=== PATIENT | female | born 1995 | race Caucasian/White ===

== ENCOUNTER 2017-09-28 17:08 | Emergency (ER) | payer BC ==
[2017-09-28 17:51] LABS: BASOPHILS 0.4 % (0-2); EOSINOPHILS 1.1 % (0-7); HEMATOCRIT 34.5 % (36.0-48.0); HEMOGLOBIN 11.4 g/dL (12-16); IMMATURE GRANULOCYTES 0.2 % (0-5); LYMPHOCYTES 22.8 % (15-50); MCH 25.9 pg (26.0-34.0); MCV 78.2 fL (80.0-100.0); MEAN PLATELET VOLUME 9.5 fL (7.4-10.4); MONOCYTES 6.3 % (2-11); NEUTROPHILS 69.2 % (40-80); PLATELET COUNT 285 10x3/uL (130-400); RBC 4.41 10x6/uL (4.00-5.40); RDW 17.3 % (11.5-14.5); WBC 5.2 10x3/uL (4.8-10.8)
[2017-09-28 18:08] LABS: ALBUMIN 3.8 g/dL (3.4-5.0); ALKALINE PHOSPHATASE 44 U/L (46-116); ALT (SGPT) 32 U/L (10-68); BILIRUBIN - TOTAL 0.81 mg/dL (0.2-1.3); CALC OSMOLALITY 270 mosm/kg (275-300); CALCIUM 9.3 mg/dL (8.5-10.1); CHLORIDE - SERUM 102 mmol/L (98-107); CREATININE - SERUM 0.5 mg/dL (0.6-1.3); GLUCOSE 114 mg/dL (74-106); POTASSIUM - SERUM 3.7 mmol/L (3.5-5.1); PROTEIN - SERUM 7.6 g/dL (6.4-8.2); SODIUM 136 mmol/L (136-145); UREA NITROGEN 7 mg/dL (7-18); eGFR NON AFRICAN AMERICAN > 90 mL/min (90-120)
[2017-09-28 18:28] LABS: APPEARANCE SLT CLOUDY (CLEAR); COLOR AMBER (YELLOW); GLUCOSE NEGATIVE (NEGATIVE); KETONE LARGE mg/dL (NEGATIVE); NITRITE NEGATIVE (NEGATIVE); PROTEIN NEGATIVE (NEGATIVE)
[2017-09-28 18:29] LABS: BILIRUBIN 1+ (NEGATIVE)
[2017-09-28 18:32] LABS: BACTERIA MODERATE /hpf (NONE SEEN); EPITHELIAL CELLS 0-5 /hpf (0-5); MUCUS <1+ /lpf (NONE SEEN); RED CELLS - URINE 0-5 /hpf (0-5)
[2017-09-28 18:33] LABS: HCG - QUANTITATIVE (MATERNAL) 215001 mIU/mL
== END 2017-09-28 22:45 | disposition home or self-care (01) ==
LOC: D.ER 17:08
PROVIDERS: Emergency Medicine
DX: O26.891 Other specified pregnancy related conditions, first trimester (principal); Z3A.08 8 weeks gestation of pregnancy; R10.2 Pelvic and perineal pain; D64.9 Anemia, unspecified

== ENCOUNTER 2017-10-07 20:30 | Emergency (ER) | payer BC ==
[2017-10-07 20:57] LABS: BASOPHILS 0.3 % (0-2); EOSINOPHILS 0.3 % (0-7); HEMOGLOBIN 13.4 g/dL (12-16); IMMATURE GRANULOCYTES 0.3 % (0-5); LYMPHOCYTES 14.3 % (15-50); MCH 26.3 pg (26.0-34.0); MCHC 33.5 g/dL (31.0-37.0); MCV 78.6 fL (80.0-100.0); MEAN PLATELET VOLUME 9.7 fL (7.4-10.4); MONOCYTES 6.7 % (2-11); NEUTROPHILS 78.1 % (40-80); PLATELET COUNT 321 10x3/uL (130-400); RBC 5.09 10x6/uL (4.00-5.40); RDW 17.5 % (11.5-14.5); WBC 7.7 10x3/uL (4.8-10.8)
[2017-10-07 21:22] LABS: ALBUMIN 4.5 g/dL (3.4-5.0); ALKALINE PHOSPHATASE 59 U/L (46-116); ALT (SGPT) 65 U/L (10-68); CALC OSMOLALITY 267 mosm/kg (275-300); CALCIUM 10.3 mg/dL (8.5-10.1); CARBON DIOXIDE 16.8 mmol/L (21.0-32.0); CHLORIDE - SERUM 101 mmol/L (98-107); CREATININE - SERUM 0.6 mg/dL (0.6-1.3); GLUCOSE 80 mg/dL (74-106); POTASSIUM - SERUM 4.4 mmol/L (3.5-5.1); PROTEIN - SERUM 8.8 g/dL (6.4-8.2); SODIUM 135 mmol/L (136-145); UREA NITROGEN 11 mg/dL (7-18); eGFR NON AFRICAN AMERICAN > 90 mL/min (90-120)
[2017-10-07 21:43] LABS: HCG - QUANTITATIVE (MATERNAL) 240217 mIU/mL
[2017-10-07 23:34] LABS: APPEARANCE CLEAR (CLEAR); BILIRUBIN NEGATIVE (NEGATIVE); COLOR DK YELLOW (YELLOW); GLUCOSE NEGATIVE (NEGATIVE); KETONE LARGE mg/dL (NEGATIVE); NITRITE NEGATIVE (NEGATIVE); PROTEIN NEGATIVE (NEGATIVE); SPECIFIC GRAVITY 1.025 (1.005-1.020); UROBILINOGEN NORMAL (NORMAL)
== END 2017-10-07 23:55 | disposition home or self-care (01) ==
LOC: D.ER 20:30
PROVIDERS: Family Medicine
DX: O02.81 Inappropriate change in quantitative human chorionic gonadotropin (hCG) in early pregnancy (principal); R11.10 Vomiting, unspecified

== ENCOUNTER 2018-01-06 11:54 | Outpatient (CLI) | payer BC ==
[2018-01-06 12:46] LABS: APPEARANCE HAZY (CLEAR); BILIRUBIN NEGATIVE (NEGATIVE); COLOR YELLOW (YELLOW); GLUCOSE NEGATIVE (NEGATIVE); KETONE NEGATIVE (NEGATIVE); NITRITE NEGATIVE (NEGATIVE); PROTEIN TRACE mg/dL (NEGATIVE); UROBILINOGEN NORMAL (NORMAL)
[2018-01-06 12:48] LABS: BACTERIA MODERATE /hpf (NONE SEEN); EPITHELIAL CELLS 0-5 /hpf (0-5); MUCUS <1+ /lpf (NONE SEEN); RED CELLS - URINE 0-5 /hpf (0-5); WHITE CELLS - URINE 0-5 /hpf (0-5)
[2018-01-06 13:57] LABS: BASOPHILS 0.1 % (0-2); EOSINOPHILS 0.5 % (0-7); HEMATOCRIT 32.1 % (36.0-48.0); HEMOGLOBIN 10.6 g/dL (12-16); IMMATURE GRANULOCYTES 0.2 % (0-5); LYMPHOCYTES 4.7 % (15-50); MCH 28.3 pg (26.0-34.0); MCV 85.6 fL (80.0-100.0); MEAN PLATELET VOLUME 9.4 fL (7.4-10.4); MONOCYTES 5.4 % (2-11); NEUTROPHILS 89.1 % (40-80); PLATELET COUNT 226 10x3/uL (130-400); RBC 3.75 10x6/uL (4.00-5.40); RDW 15.3 % (11.5-14.5); WBC 8.7 10x3/uL (4.8-10.8)
== END 2018-01-06 20:05 | disposition home or self-care (01) ==
LOC: D.LDO 11:54
PROVIDERS: Obstetrics & Gynecology
DX: O26.893 Other specified pregnancy related conditions, third trimester (principal); Z3A.23 23 weeks gestation of pregnancy

== ENCOUNTER 2018-03-11 17:39 | Outpatient (CLI) | payer BC ==
[2018-03-11 17:59] LABS: APPEARANCE CLEAR (CLEAR); COLOR YELLOW (YELLOW)
[2018-03-11 18:00] LABS: BILIRUBIN NEGATIVE (NEGATIVE); GLUCOSE NEGATIVE (NEGATIVE); KETONE NEGATIVE (NEGATIVE); NITRITE NEGATIVE (NEGATIVE); PROTEIN NEGATIVE (NEGATIVE); UROBILINOGEN NORMAL (NORMAL)
[2018-03-11 18:03] LABS: BACTERIA MODERATE /hpf (NONE SEEN); EPITHELIAL CELLS 0-5 /hpf (0-5); WHITE CELLS - URINE 0-5 /hpf (0-5)
[2018-03-11 18:33] LABS: BASOPHILS 0 % (0-2); EOSINOPHILS 0.7 % (0-7); HEMATOCRIT 32.4 % (36.0-48.0); HEMOGLOBIN 10.6 g/dL (12-16); IMMATURE GRANULOCYTES 0.3 % (0-5); MCH 28.2 pg (26.0-34.0); MCHC 32.7 g/dL (31.0-37.0); MCV 86.2 fL (80.0-100.0); MEAN PLATELET VOLUME 10.1 fL (7.4-10.4); PLATELET COUNT 214 10x3/uL (130-400); RBC 3.76 10x6/uL (4.00-5.40); RDW 14.5 % (11.5-14.5); WBC 7.6 10x3/uL (4.8-10.8)
== END 2018-03-11 22:15 ==
LOC: D.LDO 17:39
PROVIDERS: Obstetrics & Gynecology
DX: O26.893 Other specified pregnancy related conditions, third trimester (principal); Z3A.31 31 weeks gestation of pregnancy

== ENCOUNTER 2018-04-02 20:39 | Outpatient (CLI) | payer BC ==
[2018-04-02 21:27] LABS: APPEARANCE CLEAR (CLEAR); BILIRUBIN NEGATIVE (NEGATIVE); COLOR YELLOW (YELLOW); GLUCOSE NEGATIVE (NEGATIVE); KETONE SMALL mg/dL (NEGATIVE); NITRITE NEGATIVE (NEGATIVE); PROTEIN TRACE mg/dL (NEGATIVE); SPECIFIC GRAVITY 1.015 (1.005-1.020); UROBILINOGEN NORMAL (NORMAL)
[2018-04-02 21:28] LABS: BACTERIA MANY /hpf (NONE SEEN); EPITHELIAL CELLS 0-5 /hpf (0-5); RED CELLS - URINE 0-5 /hpf (0-5); WHITE CELLS - URINE 0-5 /hpf (0-5)
== END 2018-04-02 21:50 | disposition home or self-care (01) ==
LOC: D.LABREF 20:39
PROVIDERS: Obstetrics & Gynecology
DX: O26.893 Other specified pregnancy related conditions, third trimester (principal); Z3A.35 35 weeks gestation of pregnancy

== ENCOUNTER 2018-04-05 14:43 | Outpatient (CLI) | payer BC ==
[2018-05-08 09:38] VITALS: BMI 34.4
== END 2018-04-05 15:15 ==
LOC: D.LDO 14:43
DX: O26.893 Other specified pregnancy related conditions, third trimester (principal); Z3A.35 35 weeks gestation of pregnancy; R22.43 Localized swelling, mass and lump, lower limb, bilateral; R22.33 Localized swelling, mass and lump, upper limb, bilateral

== ENCOUNTER 2018-05-07 22:21 | Inpatient (IN) | payer BC ==
[~2018-05-07] VITALS: Ht 165.1 cm; Wt 93.9 kg
[2018-05-08] MEDS ORDERED: PRENAVITE1 TAB PO (01:33)
[2018-05-08 01:34] VITALS: BP 121/72; BMI 34.5
[2018-05-08 04:44] LABS: HEMATOCRIT 33.4 % (36.0-48.0); MCH 27.8 pg (26.0-34.0); MCHC 32.9 g/dL (31.0-37.0); MCV 84.6 fL (80.0-100.0); MEAN PLATELET VOLUME 10.8 fL (7.4-10.4); RBC 3.95 10x6/uL (4.00-5.40); WBC 8.2 10x3/uL (4.8-10.8)
[2018-05-08 05:03] LABS: APPEARANCE CLOUDY (CLEAR); COLOR YELLOW (YELLOW); GLUCOSE NEGATIVE (NEGATIVE); KETONE NEGATIVE (NEGATIVE); NITRITE NEGATIVE (NEGATIVE); PROTEIN 2+ mg/dL (NEGATIVE); UROBILINOGEN NORMAL (NORMAL)
[2018-05-08 05:04] LABS: BILIRUBIN NEGATIVE (NEGATIVE)
[2018-05-08 05:05] LABS: BACTERIA MANY /hpf (NONE SEEN); EPITHELIAL CELLS 0-5 /hpf (0-5); RED CELLS - URINE 0-5 /hpf (0-5)
[2018-05-08 09:38] VITALS: Ht 165.1 cm; Wt 93.9 kg
[2018-05-08 19:25] VITALS: BP 129/72
[2018-05-09 05:08] LABS: BASOPHILS 0.1 % (0-2); EOSINOPHILS 0.5 % (0-7); HEMATOCRIT 29.8 % (36.0-48.0); HEMOGLOBIN 9.7 g/dL (12-16); IMMATURE GRANULOCYTES 0.4 % (0-5); LYMPHOCYTES 19.8 % (15-50); MCH 27.6 pg (26.0-34.0); MCHC 32.6 g/dL (31.0-37.0); MCV 84.7 fL (80.0-100.0); MEAN PLATELET VOLUME 10.4 fL (7.4-10.4); MONOCYTES 7.3 % (2-11); NEUTROPHILS 71.9 % (40-80); PLATELET COUNT 206 10x3/uL (130-400); RBC 3.52 10x6/uL (4.00-5.40); RDW 15.1 % (11.5-14.5)
[2018-05-09 05:14] LABS: WBC 10.6 10x3/uL (4.8-10.8)
[2018-05-09 06:15] LABS: RAPID PLASMA REAGIN Non Reactive (Non Reactive)
[2018-05-09 07:58] VITALS: BP 129/72
[2018-05-09 21:29] VITALS: BP 124/72
== END 2018-05-10 13:40 | disposition home or self-care (01) | DRG 807 ==
LOC: D.LD 22:21
PROVIDERS: Obstetrics & Gynecology
PROC: 10E0XZZ Delivery of Products of Conception, External Approach (ICD-10-PCS; principal; 2018-05-08)
DX: O99.824 Streptococcus B carrier state complicating childbirth (principal); Z37.0 Single live birth; Z3A.40 40 weeks gestation of pregnancy; O99.214 Obesity complicating childbirth

== ENCOUNTER 2018-06-17 16:18 | Observation (INO) | payer BC ==
[~2018-06-17] VITALS: Ht 165.1 cm; Wt 80.5 kg
[~2018-06-17 16:18] MED LIST: PRENAVITE1 TAB PO
[2018-06-17 17:26] LABS: BASOPHILS 0.2 % (0-2); EOSINOPHILS 0.2 % (0-7); HEMATOCRIT 34.3 % (36.0-48.0); HEMOGLOBIN 11.2 g/dL (12-16); IMMATURE GRANULOCYTES 0.2 % (0-5); LYMPHOCYTES 15.9 % (15-50); MCH 27.4 pg (26.0-34.0); MCHC 32.7 g/dL (31.0-37.0); MCV 83.9 fL (80.0-100.0); MEAN PLATELET VOLUME 9.3 fL (7.4-10.4); MONOCYTES 8.4 % (2-11); NEUTROPHILS 75.1 % (40-80); PLATELET COUNT 214 10x3/uL (130-400); RBC 4.09 10x6/uL (4.00-5.40); RDW 14.4 % (11.5-14.5); WBC 5.6 10x3/uL (4.8-10.8)
[2018-06-17 17:32] LABS: APPEARANCE CLEAR (CLEAR); BILIRUBIN 2+ (NEGATIVE); COLOR DK YELLOW (YELLOW); GLUCOSE NEGATIVE (NEGATIVE); KETONE LARGE mg/dL (NEGATIVE); NITRITE NEGATIVE (NEGATIVE); PROTEIN 1+ mg/dL (NEGATIVE); SPECIFIC GRAVITY 1.005 (1.005-1.020)
[2018-06-17 17:33] LABS: BACTERIA MANY /hpf (NONE SEEN); EPITHELIAL CELLS 0-5 /hpf (0-5); RED CELLS - URINE 0-5 /hpf (0-5)
[2018-06-17 17:36] LABS: ALBUMIN 3.1 g/dL (3.4-5.0); ALKALINE PHOSPHATASE 180 U/L (46-116); ALT (SGPT) 35 U/L (10-68); AMYLASE - SERUM 21 U/L (25-115); BILIRUBIN - TOTAL 0.78 mg/dL (0.2-1.3); CALC OSMOLALITY 267 mosm/kg (275-300); CALCIUM 8.5 mg/dL (8.5-10.1); CARBON DIOXIDE 22.9 mmol/L (21.0-32.0); CHLORIDE - SERUM 100 mmol/L (98-107); CREATININE - SERUM 0.8 mg/dL (0.6-1.3); GLUCOSE 94 mg/dL (74-106); LIPASE 114 U/L (73-393); POTASSIUM - SERUM 3.2 mmol/L (3.5-5.1); PROTEIN - SERUM 7.5 g/dL (6.4-8.2); SODIUM 135 mmol/L (136-145); UREA NITROGEN 6 mg/dL (7-18); eGFR NON AFRICAN AMERICAN > 90 mL/min (90-120)
[2018-06-17 17:37] LABS: MUCUS <1+ /lpf (NONE SEEN)
[2018-06-17 18:08] LABS: HCG URINE NEGATIVE (NEGATIVE)
--- NOTE | 2018-06-17 18:59 | NUR ---
REPORT GIVEN TO EMERITA ORLANDO AT THIS TIME.
--- NOTE | 2018-06-17 20:10 | NUR ---
PT TO CT.
--- NOTE | 2018-06-17 20:40 | NUR ---
PT BACK FROM CT- IV FLUIDS BEGAN. WARM BLANKET TO PATIENT.
[2018-06-17 21:20] VITALS: BP 104/64
--- NOTE | 2018-06-17 22:41 | NUR ---
PT STATES PAIN "SO MUCH BETTER"- PT REMINDED THAT SHE IS NPO.
[2018-06-17 23:26] VITALS: BP 107/71
--- NOTE | 2018-06-18 00:39 | NUR ---
CONSENTS FOR [facility] SIGNED AND PLACED ON CHARTS.
--- NOTE | 2018-06-18 01:11 | NUR ---
PT RESTING QUIETLY WITH EYES CLOSED.
[2018-06-18 04:16] VITALS: BP 95/51
--- NOTE | 2018-06-18 04:16 | NUR ---
PT AWAKE- RATES PAIN 8/10- MORPHINE AND ZOFRAN GIVEN.
[2018-06-18 06:27] VITALS: BP 107/71
--- NOTE | 2018-06-18 10:30 | NUR ---
MERREM INFUSION IS COMPLETE AT THIS TIME, PT REPORTS RELIEF OF PAIN AFTER ANALGESICS, DENIES OTHER NEEDS, WILL CONTINUE TO MONITOR.
[2018-06-18 10:32] VITALS: Ht 165.1 cm; Wt 80.5 kg
[2018-06-18 13:48] VITALS: BP 124/80
[2018-06-18] MEDS ORDERED: NORCO 10-325 TA1 TAB PO (15:01)
--- NOTE | 2018-06-18 18:08 | NUR ---
DC INSTRUCTIONS GIVEN TO PT. STATES UNDERSTANDIND. DC'D IV CATH FULLY INTACT.
--- NOTE | 2018-06-18 18:17 | NUR ---
PT LEFT UNIT VIA WC AT 1814
--- NOTE | 2018-06-18 18:24 | NUR ---
PT LEFT UNIT VIA WC AT 1814
--- NOTE | 2018-06-19 11:56 | OP ---
PATIENT NAME: SADAF MERRITT MEDICAL RECORD: [id number] :95 LOCATION:[facility]- ADMISSION DATE:06/17/18 SURGEON: KEEGAN SAENZ MD DATE OF OPERATION: 06/18/2018 PREOPERATIVE DIAGNOSES: Acute appendicitis with localized peritonitis. POSTOPERATIVE DIAGNOSES: Acute appendicitis with localized peritonitis. PROCEDURE: Laparoscopic appendectomy. SURGEON: Keegan Saenz MD REPORT OF PROCEDURE: The patient's abdomen was prepped and draped in sterile fashion. A cutdown was made on the superior aspect of the umbilicus, 0 Vicryls were placed in the fascia bilaterally and the fascia was incised with 15-blade. I then bluntly entered the peritoneal cavity and placed a 12-mm Danuta port. Under direct visualization, a 5-mm trocar was placed in the left lower quadrant and another was placed in the suprapubic region. The appendix was found and elevated. There were some inflammatory adhesions present and these were teased down carefully with blunt dissection. The appendix itself appeared to be inflamed throughout its length with no signs of any gangrene or perforation. A window was made at the base of the mesoappendix and the mesoappendix was transected with a 45 white load Endo-FROYLAN stapler. The appendix was transected at its base using a 45 blue load Endo-FROYLAN stapler. This was then placed into an EndoCatch bag. The right lower quadrant was irrigated out and care was taken to assure there was no sign of any bleeding. At this point, the ports and insufflation were then removed and the appendix was taken out through the umbilicus. The umbilical fascia was closed with interrupted 0 Vicryls times 3. The wounds were irrigated out with normal saline and infused with 10 mL of 0.25% Marcaine with epinephrine. The skin incisions were closed with subcutaneous 5-0 Monocryl and dressed appropriately. COMPLICATIONS: None. CONDITION: Stable. ANESTHESIA: General endotracheal and local. BLOOD LOSS: Minimal. TRANSINT:[id number] Voice Confirmation ID: [id number] DOCUMENT ID: [id number] KEEGAN SAENZ MD at 1156 CC: [id number] DICTATION DATE: 06/18/18 1506 TV PRODUCTION ASSISTANT: 06/18/18 1630 DIS IN 06/18/18 [facility] [address] [place] [id number]
== END 2018-06-18 18:15 | disposition home or self-care (01) ==
LOC: D.ER 16:18 → D.EDHOLD 21:06 → OBSVTIME 21:06 → D.EDHOLD 21:06
PROVIDERS: Emergency Medicine; ADMIT Surgery
DX: K35.30 Acute appendicitis with localized peritonitis, without perforation or gangrene (principal)

== ENCOUNTER 2018-10-18 19:22 | Emergency (ER) | payer BC ==
[~2018-10-18] VITALS: Ht 165.1 cm; Wt 72.7 kg
[~2018-10-18 19:22] MED LIST changes: +NORCO 10-325 TA1 TAB PO
[2018-10-18 19:49] VITALS: Ht 165.1 cm; Wt 72.7 kg
[2018-10-18 22:42] VITALS: BP 106/63
== END 2018-10-18 22:42 | disposition home or self-care (01) ==
LOC: D.ER 19:22
DX: J02.9 Acute pharyngitis, unspecified (principal)

== ENCOUNTER 2019-11-22 06:50 | Day surgery (SDC) | payer BC ==
[2019-11-20 15:20] LABS: BASOPHILS 0.2 % (0-2); EOSINOPHILS 1.2 % (0-7); HEMATOCRIT 38.7 % (36.0-48.0); HEMOGLOBIN 12.6 g/dL (12-16); LYMPHOCYTES 32.6 % (15-50); MCH 27.9 pg (26.0-34.0); MCHC 32.6 g/dL (31.0-37.0); MCV 85.8 fL (80.0-100.0); MEAN PLATELET VOLUME 9.1 fL (7.4-10.4); RBC 4.51 10x6/uL (4.00-5.40); RDW 13.4 % (11.5-14.5); WBC 4.9 10x3/uL (4.8-10.8)
[2019-11-20 15:32] LABS: PLATELET COUNT 287 10x3/uL (130-400)
[~2019-11-22] VITALS: Ht 165.1 cm; Wt 87.5 kg
--- NOTE | ~2019-11-22 | OP ---
PATIENT NAME: SADAF MERRITT MEDICAL RECORD: [id number] :95 LOCATION:[facility] ADMISSION DATE: SURGEON: MARIA FERNANDA CUMMINGS MD DATE OF OPERATION: 11/22/2019 PREOPERATIVE DIAGNOSIS: Pelvic pain. POSTOPERATIVE DIAGNOSES: 1. Pelvic pain. 2. Endometriosis. PROCEDURE: Diagnostic laparoscopy. SURGEON: Maria Fernanda Cummings MD ANESTHESIA: General endotracheal. INTRAVENOUS FLUIDS: Per anesthesia record. SPECIMENS: None. COMPLICATIONS: None apparent. FINDINGS: 1. Grossly normal appearing fallopian tubes and ovaries. 2. Uterine texture consistent with adenomyosis. 3. Areas in the posterior cul-de-sac consistent with endometriosis. PROCEDURE IN DETAIL: The patient taken to the operating room where general anesthesia was achieved without difficulty. The patient was then prepped and draped in normal sterile fashion in the dorsal lithotomy position. The bladder was drained of approximately 100 cc of clear yellow urine. A sponge stick was then placed into the vagina for uterine elevation. At this point, a 5-mm incision was made in the lower aspect of the umbilicus and a 5-mm bladeless trocar was used to enter the intraperitoneal space under direct visualization of the laparoscope. The introducer was then removed and the laparoscope was then placed back into the trocar and intraperitoneal placement was confirmed. The patient was then insufflated, opening pressure was found to be less than 10 mmHg. At this point, a second 5-mm port was placed in the midline about 5 mm superior to the pubic symphysis. A 5-mm bladeless trocar was then introduced through this site under direct visualization of the laparoscope. Survey of the abdomen and pelvis was then performed. The scope was then removed. The patient was desufflated and the trocars were then removed. The skin was repaired with 3-0 Vicryl in an interrupted fashion and the sponge stick was then removed from the vagina. The patient tolerated procedure well, was transferred to postanesthesia recovery stable without incident. TRANSINT:[id number] Voice Confirmation ID: [id number] DOCUMENT ID: [id number] OPERATIVE REPORT [id number] SADAF MERRITT MARIA FERNANDA CUMMINGS MD CC: [id number] DICTATION DATE: 12/02/19 0559 SOFTWARE SALES: 12/02/19 1028 [facility] 11/22/19 [facility] [address] [facility] [place] [address]
[2019-11-22 07:21] VITALS: BP 106/78; Ht 165.1 cm; Wt 87.5 kg
[2019-11-22 07:41] LABS: HCG URINE NEGATIVE (NEGATIVE)
--- NOTE | 2019-11-22 10:47 | NUR ---
1047 OPA DISCONTINUED. PATIENT AROUSABLE AND MAINTAINING PATENT AIRWAY
--- NOTE | 2019-11-22 13:19 | NUR ---
1315 VOMITED X1 SMALL AMT. MEDICATED ZOFRAN SL. SLIGHTLY PALE.
--- NOTE | 2019-11-22 13:20 | NUR ---
1310 IV REMOVED PRESSURE HELD AND DRESSING APPLIED
--- NOTE | 2019-11-22 13:42 | NUR ---
1345 PT TOLERATING ICE CHIPS. VOMITED A SMALL AMT. WILL CALL WHEN READY TO GO HOME
--- NOTE | 2019-11-22 14:25 | NUR ---
1425 PT FEELING MILD NAUSEA. BAG PROVIDED AND COLD RAG TO NECK. TOLERATING ICE CHIPS
== END 2019-11-22 14:25 | disposition home or self-care (01) ==
LOC: D.OPS 06:50 → D.PAN 08:45 → D.OPS 08:45
PROVIDERS: ATTEND Obstetrics & Gynecology
DX: R10.2 Pelvic and perineal pain (principal); N80.9 Endometriosis, unspecified

== ENCOUNTER 2020-09-14 23:42 | Emergency (ER) | payer BC, OTHER ==
[~2020-09-14] VITALS: Ht 165.1 cm; Wt 95.5 kg
[~2020-09-14 23:42] MED LIST changes: +IBUPROFEN800 MG PO; +NORCO 7.5-3251 EACH PO
[2020-09-14 23:47] VITALS: Ht 165.1 cm; Wt 95.5 kg
[2020-09-15 00:12] LABS: BASOPHILS 0.3 % (0-2); EOSINOPHILS 1.7 % (0-7); HEMATOCRIT 36.9 % (36.0-48.0); HEMOGLOBIN 11.8 g/dL (12-16); IMMATURE GRANULOCYTES 0.3 % (0-5); LYMPHOCYTES 39.2 % (15-50); MCH 26.3 pg (26.0-34.0); MCV 82.2 fL (80.0-100.0); MEAN PLATELET VOLUME 9.3 fL (7.4-10.4); MONOCYTES 7.7 % (2-11); NEUTROPHIL ABS# 3.38 10x3/uL (1.56-6.13); NEUTROPHILS 50.8 % (40-80); PLATELET COUNT 324 10x3/uL (130-400); RBC 4.49 10x6/uL (4.00-5.40); RDW 14.3 % (11.5-14.5); WBC 6.6 10x3/uL (4.8-10.8)
[2020-09-15 00:28] LABS: HCG URINE NEGATIVE (NEGATIVE)
[2020-09-15 00:32] LABS: BILIRUBIN NEGATIVE (NEGATIVE); CALC OSMOLALITY 282 mosm/kg (275-300); CARBON DIOXIDE 28.5 mmol/L (21.0-32.0); CHLORIDE - SERUM 103 mmol/L (98-107); CREATININE - SERUM 0.8 mg/dL (0.6-1.3); GLUCOSE 92 mg/dL (74-106); KETONE NEGATIVE (NEGATIVE); NITRITE NEGATIVE (NEGATIVE); POTASSIUM - SERUM 3.6 mmol/L (3.5-5.1); SODIUM 141 mmol/L (136-145); UREA NITROGEN 19 mg/dL (7-18); UROBILINOGEN NORMAL mg/dL (< 2); eGFR NON AFRICAN AMERICAN > 90 mL/min (90-120)
[2020-09-15 00:34] LABS: BACTERIA FEW HPF (NONE SEEN); SQUAMOUS EPITHELIAL 0-5 HPF (0-4); WHITE CELLS - URINE 0-5 HPF (0-4)
[2020-09-15 00:38] LABS: ALBUMIN 4.1 g/dL (3.4-5.0); ALKALINE PHOSPHATASE 79 U/L (30-120); ALT (SGPT) 30 U/L (10-68); BILIRUBIN - TOTAL 0.37 mg/dL (0.2-1.3); LIPASE 100 U/L (73-393); PROTEIN - SERUM 7.9 g/dL (6.4-8.2)
[2020-09-15 04:04] VITALS: BP 128/86
== END 2020-09-15 04:05 | disposition home or self-care (01) ==
LOC: D.ER 23:42
PROVIDERS: Family Medicine
DX: R07.89 Other chest pain (principal); R10.11 Right upper quadrant pain

== ENCOUNTER → 2020-11-26 15:10 | Outpatient (CLI) | payer BC, OTHER ==
[2020-09-14 23:47] VITALS: BMI 35.0
== END | disposition home or self-care (01) ==
LOC: D.CT 15:10
PROVIDERS: ATTEND Obstetrics & Gynecology
DX: R10.2 Pelvic and perineal pain (principal)